=== PATIENT | female | born 1945 | race Caucasian/White ===

== ENCOUNTER → 2016-04-05 | Outpatient (REF) | payer MEDICARE, OTHER | LOC: M LAB REF 09:39 | PROVIDERS: ATTEND Ophthalmology | DX: H02.403 Unspecified ptosis of bilateral eyelids (principal) ==

== ENCOUNTER → 2016-07-04 | Outpatient (CLI) | payer MEDICARE, OTHER ==
[2016-07-04 14:41] LABS: MEAN CORPUSCULAR HEMOGLOBIN 35.6 pg (27.0-33.0); MEAN CORPUSCULAR VOLUME 101.7 fl (80.0-96.0); RED CELL DISTRIBUTION WIDTH 12.6 % (11.5-14.5); WHITE BLOOD COUNT 5.2 K/mm3 (4.0-10.0)
--- NOTE | 2016-07-04 19:10 | ECGEPIP ---
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
== END ==
LOC: M LAB 14:03
PROVIDERS: ATTEND Ophthalmology
DX: E78.00 Pure hypercholesterolemia, unspecified (principal)

== ENCOUNTER → 2016-10-06 | Outpatient (CLI) | payer MEDICARE, OTHER ==
--- NOTE | 2016-10-06 12:23 | REPMRS ---
Patient History The patient states she has not had a clinical breast exam in over a year. Patient is postmenopausal. Family history of breast cancer in sister under age 50, colorectal cancer in mother at age 50 or over, and pancreatic cancer in paternal grandmother. Digital Woman Screen Mammo: October 06, 2016 - Exam #: [id number] Bilateral CC and MLO view(s) were taken. Technologist: Rubi Terrell, Technologist Prior study comparison: September 30, 2015, digital woman screen mammo performed at [facility]. September 25, 2014, digital woman screen mammo performed at [facility] [employer] [facility]. FINDINGS: There are scattered fibroglandular densities. There has been no change in the appearance of the mammogram from the prior studies. There is a mild amount of residual fibroglandular tissue which is fairly symmetric. There is no interval development of dominant mass, architectural distortion, or clustered microcalcification suggestive of malignancy. ASSESSMENT: BI-RADS/ACR category 1 mammogram. Negative. Recommendation Routine screening mammogram in 1 year (for women over age 40). This mammogram was interpreted with the aid of an FDA-approved computer-aided dectection system. Electronically Signed By: Marky Burdick MD 10/06/16 1183
== END ==
LOC: M WHC 10:30
PROVIDERS: ATTEND Family Medicine
DX: Z12.31 Encounter for screening mammogram for malignant neoplasm of breast (principal)

== ENCOUNTER 2017-04-12 06:45 | Day surgery (SDC) | payer MEDICARE, OTHER ==
[2017-04-12] MEDS ORDERED: LIDOCAINE 2% INJ 100 MG/5 ML SDV (FOR ANES.) As Ordered (07:04)
[2017-04-12] MEDS ORDERED: PROPOFOL 200 MG/20 ML VIAL As Ordered ×2 (07:04→07:47)
[2017-04-12] MEDS: NS 500 ML IV (07:14)
== END 2017-04-12 08:32 | disposition home or self-care (01) ==
LOC: M OPP 06:45
DX: Z12.11 Encounter for screening for malignant neoplasm of colon (principal); Z86.010 Personal history of colon polyps; Z80.0 Family history of malignant neoplasm of digestive organs; D12.5 Benign neoplasm of sigmoid colon; K55.20 Angiodysplasia of colon without hemorrhage; K57.30 Diverticulosis of large intestine without perforation or abscess without bleeding; E78.5 Hyperlipidemia, unspecified; Z78.0 Asymptomatic menopausal state; Z80.1 Family history of malignant neoplasm of trachea, bronchus and lung; Z80.8 Family history of malignant neoplasm of other organs or systems; Z80.3 Family history of malignant neoplasm of breast; Z87.891 Personal history of nicotine dependence; Z79.899 Other long term (current) drug therapy
CPT/HCPCS: 45385

== ENCOUNTER → 2017-10-08 | Outpatient (CLI) | payer MEDICARE, OTHER | LOC: M WHC 10:42 | DX: Z12.31 Encounter for screening mammogram for malignant neoplasm of breast (principal); M85.851 Other specified disorders of bone density and structure, right thigh; M85.852 Other specified disorders of bone density and structure, left thigh; M85.88 Other specified disorders of bone density and structure, other site | CPT/HCPCS: 77067 ==

== ENCOUNTER 2018-06-15 18:15 | Emergency (ER) | payer MEDICARE, OTHER ==
[~2018-06-15] VITALS: Ht 167.6 cm; Wt 85.5 kg
[~2018-06-15 18:15] MED LIST: OMEG340C PO; SIMV20TA2; VITA100067 PO; VITA500T PO
[2018-06-15] MEDS ORDERED: NS 1,000 ML IV ONE ×2 (19:15)
[2018-06-15] MEDS ORDERED: METOCLOPRAMIDE INJ 10MG/2ML VIAL (J2765) IV ONE (19:15)
[2018-06-15] MEDS ORDERED: DICYCLOMINE INJ 20MG/2ML (J0500) IM ONE (19:15)
[2018-06-15 19:38] LABS: BASO % 0.3 % (0.0-1.0); EOS # 0.1 10^3/uL (0.0-0.50); EOS % 0.8 % (0.0-3.0); HEMATOCRIT 43.5 % (36.0-47.0); LYMPH # 1.1 10^3/uL (1.5-4.5); LYMPH % 13.5 % (24.0-44.0); MEAN CORPUSCULAR HEMOGLOBIN 34.5 pg (27.0-33.0); MEAN CORPUSCULAR HGB CONC 34.5 g/dl (32.0-36.5); MONO # 0.5 10^3/uL (0.0-0.8); MONO % 5.7 % (0.0-5.0); NEUTROPHILS # 6.2 10^3/uL (1.8-7.7); NEUTROPHILS % 79.4 % (36.0-66.0); PLATELET COUNT, AUTOMATED 174 10^3/uL (150-450); RED BLOOD COUNT 4.35 10^6/uL (4.00-5.40); WHITE BLOOD COUNT 7.9 10^3/uL (4.0-10.0)
[2018-06-15 20:08] LABS: ALBUMIN 3.1 GM/DL (3.2-5.2); ALT/SGPT 199 U/L (12-78); AMYLASE 26 U/L (25-115); BILIRUBIN,TOTAL 1.9 MG/DL (0.2-1.0); BLOOD UREA NITROGEN 19 MG/DL (7-18); C REACTIVE PROTEIN QUANTITATIV 5.38 MG/DL (0.00-0.30); CALCIUM LEVEL 8.1 MG/DL (8.8-10.2); CARBON DIOXIDE LEVEL 25 MEQ/L (21-32); CHLORIDE LEVEL 105 MEQ/L (98-107); CREATININE FOR GFR 0.73 MG/DL (0.55-1.30); GLOMERULAR FILTRATION RATE > 60.0 (>39); GLUCOSE, FASTING 83 MG/DL (70-100); LIPASE 134 U/L (73-393); POTASSIUM SERUM 3.5 MEQ/L (3.5-5.1); SODIUM LEVEL 139 MEQ/L (136-145); TOTAL PROTEIN 6.1 GM/DL (6.4-8.2)
--- NOTE | 2018-06-15 22:06 | REPVR ---
EXAM: US Abdomen Limited, Right Upper Quadrant EXAM DATE/TIME: 06/15/2018 8:21 PM CLINICAL HISTORY: 72 years old, female; Abdominal pain; Epigastric; Additional info: Ruq pain, n/v/d TECHNIQUE: Imaging protocol: Real-time ultrasound of the abdomen with image documentation. Examination was focused on the right upper quadrant. COMPARISON: No relevant prior studies available. FINDINGS: Liver: The liver demonstrates no focal defects. Gallbladder: The gallbladder demonstrates sludge and a 12 mm stone. There is slight gallbladder wall thickening measuring 3-4 mm. There is a negative sono Richter's sign. Common bile duct: The CBD is dilated measuring up to 12 mm. Pancreas: The pancreas is normal. The pancreatic duct measures 2.5 mm. Right kidney: The right kidney is normal and measures 10.4 cm. IMPRESSION: 1. Gallbladder sludge with gallstone and slight gallbladder wall thickening measuring 3-4 mm. There is a negative sono Richter's sign. 2. Dilated CBD measuring 12 mm. 3. Otherwise negative right upper quadrant sonogram. Electronically signed by: Ronen Morataya On 06/15/2018 22:06:14 PM
[2018-06-16] MEDS ORDERED: KETOROLAC 30 MG/ML VIAL (J1885) IV ONE
[2018-06-16] MEDS ORDERED: KETOROLAC 30 MG/ML VIAL (J1885) As Ordered ONE (00:02)
[2018-06-16] MEDS ORDERED: NS 1,000 ML IV SCH (00:15)
[2018-06-16 00:55] VITALS: BP 107/57
--- NOTE | 2018-06-16 09:43 | REP ---
REASON: Pain after trauma. COMPARISON: None. FINDINGS: Five views of the right ribs show no acute fracture or destructive osseous lesion. The accompanying frontal view of the chest shows no cardiomegaly, infiltrates, effusions or pneumothoraces. IMPRESSION: Negative rib series. Electronically Signed by Johan Christensen DO 06/16/2018 01:45 P
--- NOTE | 2018-06-16 20:52 | ECGEPIP ---
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
[2018-06-17 14:29] LABS: HEPATITIS C VIRUS ABY INDEX 0.1 INDEX (<0.8)
[2018-06-17 14:33] LABS: HEPATITIS B CORE ANTIBODY IGM NEGATIVE (NEGATIVE); HEPATITIS B SURFACE ANTIGEN NEGATIVE (NEGATIVE)
[2018-06-17 14:34] LABS: HEPATITIS A ANTIBODY IGM NEGATIVE (NEGATIVE)
== END 2018-06-16 00:55 | disposition short-term general hospital (02) ==
LOC: M ED 18:15
DX: K83.8 Other specified diseases of biliary tract (principal); R11.2 Nausea with vomiting, unspecified; R19.7 Diarrhea, unspecified; R10.11 Right upper quadrant pain; K80.20 Calculus of gallbladder without cholecystitis without obstruction; S29.9XXA Unspecified injury of thorax, initial encounter; W01.198A Fall on same level from slipping, tripping and stumbling with subsequent striking against other object, initial encounter; Y92.9 Unspecified place or not applicable; Y93.9 Activity, unspecified; E78.00 Pure hypercholesterolemia, unspecified; Z79.899 Other long term (current) drug therapy
CPT/HCPCS: 71101; 76705; 80053; 82150; 83690; 85025; 86140; 86705; 86709; 86803; 87340; 93005; 96361; 96372; 96374; 96375; 99284; J0500; J1885; J2765

== ENCOUNTER → 2019-01-06 | Outpatient (CLI) | payer MEDICARE, OTHER ==
--- NOTE | 2019-01-06 16:25 | REPMRS ---
Patient History The patient states she has not had a clinical breast exam in over a year. Patient is postmenopausal. Family history of colorectal cancer at age 50 or over in mother, breast cancer under age 50 in sister, pancreatic cancer in paternal grandmother. No Hormone Replacement Therapy Digital Woman Screen Mammo: January 06, 2019 - Exam #: [id number] Bilateral CC and MLO view(s) were taken. Technologist: Regla Laureano, Technologist Prior study comparison: October 08, 2017, bilateral digital woman screen mammo performed at [facility]. October 06, 2016, digital woman screen mammo performed at [facility]. September 30, 2015, digital woman screen mammo performed at [facility]. FINDINGS: There are scattered fibroglandular densities. There has been no change in the appearance of the mammogram from the prior studies. There is a mild amount of scattered fibroglandular density which is fairly symmetric. There is no interval development of dominant mass, architectural distortion, or grouped microcalcification suggestive of malignancy. 3-D tomosynthesis shows no additional findings. Assessment: BI-RADS/ACR category 1 mammogram. Negative Mammogram. Recommendation Routine screening mammogram of both breasts in 1 year (for women over age 40). This patient's Lifetime Breast Cancer Risk is estimated at 5.8 %. This mammogram was interpreted with the aid of an FDA-approved computer-aided dectection system. Electronically Signed By: Blair Greene MD 01/06/19 [id number]
== END ==
LOC: M WHC 13:06
PROVIDERS: ATTEND Family Medicine
DX: Z12.31 Encounter for screening mammogram for malignant neoplasm of breast (principal); Z80.3 Family history of malignant neoplasm of breast; Z78.0 Asymptomatic menopausal state

== ENCOUNTER → 2020-01-08 | Outpatient (CLI) | payer MEDICARE, OTHER ==
[~2020-01-08] MED LIST changes: -SIMV20TA2; +SIMV20TA22; +VITA-243 PO; -VITA500T PO
--- NOTE | 2020-01-08 13:38 | REPMRS ---
Patient History The patient states she has not had a clinical breast exam in over a year. Family history of colorectal cancer at age 50 or over in mother, breast cancer under age 50 in sister, pancreatic cancer in paternal grandmother. No Hormone Replacement Therapy Digital Woman Screen Mammo: January 08, 2020 - Exam #: [id number] Bilateral CC and MLO view(s) were taken. Technologist: RT Kaci Prior study comparison: January 06, 2019, bilateral digital woman screen mammo performed at [facility]. October 08, 2017, bilateral digital woman screen mammo performed at [facility]. October 06, 2016, digital woman screen mammo performed at [facility]. FINDINGS: There are scattered fibroglandular densities. The Volpara volumetric breast density category is:B. There has been no change in the appearance of the mammogram from the prior studies. There is a mild amount of scattered fibroglandular density which is fairly symmetric. There is no interval development of dominant mass, architectural distortion, or grouped microcalcification suggestive of malignancy. 3-D tomosynthesis shows no additional findings. Assessment: BI-RADS/ACR category 1 mammogram. Negative Mammogram. Recommendation Routine screening mammogram of both breasts in 1 year (for women over age 40). This patient's Lifetime Breast Cancer Risk is estimated at 5.3 %. This mammogram was interpreted with the aid of an FDA-approved computer-aided dectection system. Electronically Signed By: Blair Greene MD 01/08/20 9790
== END ==
LOC: M WHC 11:34
PROVIDERS: ATTEND Family Medicine
DX: Z12.31 Encounter for screening mammogram for malignant neoplasm of breast (principal); Z80.0 Family history of malignant neoplasm of digestive organs; Z80.3 Family history of malignant neoplasm of breast

== ENCOUNTER → 2021-03-15 | Outpatient (REF) | payer MEDICARE, OTHER ==
[2021-03-16 11:06] LABS: FOLATE 20.5 NG/ML (>5.4)
== END ==
LOC: M LAB REF 12:17
PROVIDERS: ATTEND Family Medicine
DX: R41.3 Other amnesia (principal)

== ENCOUNTER → 2021-05-06 | Outpatient (CLI) | payer MEDICARE, OTHER | LOC: M WHC 10:58 | PROVIDERS: ATTEND Family Medicine | DX: Z12.31 Encounter for screening mammogram for malignant neoplasm of breast (principal); Z80.3 Family history of malignant neoplasm of breast ==

== ENCOUNTER → 2022-06-19 | Outpatient (REF) | payer MEDICARE, OTHER | LOC: M LAB REF 16:07 | PROVIDERS: ATTEND Nurse Practitioner Adult Health | DX: R31.9 Hematuria, unspecified (principal) ==

== ENCOUNTER → 2022-06-27 | Outpatient (CLI) | payer MEDICARE, OTHER | LOC: M WHC 08:54 | PROVIDERS: ATTEND Nurse Practitioner Adult Health | DX: Z12.31 Encounter for screening mammogram for malignant neoplasm of breast (principal) ==

== ENCOUNTER → 2022-06-29 | Outpatient (CLI) | payer MEDICARE, OTHER | LOC: M WHC 07:19 | PROVIDERS: ATTEND Nurse Practitioner Adult Health | DX: N95.0 Postmenopausal bleeding (principal) ==

== ENCOUNTER → 2022-07-06 | Outpatient (CLI) | payer MEDICARE, OTHER | LOC: M WHC 10:06 | PROVIDERS: ATTEND Nurse Practitioner Adult Health | DX: R92.2 Inconclusive mammogram (principal) | CPT/HCPCS: 77065; G0279 ==

== ENCOUNTER → 2022-07-26 | Outpatient (REF) | payer MEDICARE, OTHER | LOC: M SFHCWAGY 17:53 | PROVIDERS: ATTEND Nurse Practitioner Family | DX: N85.8 Other specified noninflammatory disorders of uterus (principal) ==

== ENCOUNTER → 2023-08-24 | Outpatient (CLI) | payer MEDICARE, OTHER ==
[~2023-08-24] MED LIST changes: +D-3-50003 PO; +MV-M1TAB13 PO; +SERT25TA21 PO; -SIMV20TA22; +SIMV20TA22 PO; +VITA250T27 PO
== END ==
LOC: M WHC 12:09
PROVIDERS: ATTEND Family Medicine
DX: Z12.31 Encounter for screening mammogram for malignant neoplasm of breast (principal)

== ENCOUNTER 2024-10-05 19:17 | Inpatient (IN) | payer MEDICARE, OTHER ==
[~2024-10-05] VITALS: Ht 167.6 cm; Wt 65.5 kg
[2024-10-05] MEDS: MORPHINE 4 MG/ML 1 ML VIAL IV ONE (19:51)
[2024-10-05] MEDS: ONDANSETRON 4MG 2ML VIAL IV ONE (19:51)
[2024-10-05 20:10] LABS: BASO # 0.0 10^3/uL (0.0-0.2); BASO % 0.4 % (0.0-1.0); EOS # 0.1 10^3/uL (0.0-0.5); EOS % 1.5 % (0.0-3.0); LYMPH # 1.9 10^3/uL (1.5-5.0); LYMPH % 26.1 % (24.0-44.0); MONO # 0.6 10^3/uL (0.0-0.8); MONO % 7.7 % (2.0-8.0); NEUTROPHILS # 4.6 10^3/uL (1.5-8.5); NEUTROPHILS % 63.9 % (36.0-66.0); PLATELET COUNT, AUTOMATED 157 10^3/uL (150-450)
[2024-10-05 20:29] LABS: CALCIUM LEVEL 8.5 MG/DL (8.3-10.6); CARBON DIOXIDE LEVEL 26.0 MMOL/L (20-31); CHLORIDE LEVEL 106.0 MMOL/L (98-107); CREATININE FOR GFR 0.68 MG/DL (0.55-1.30); GLOMERULAR FILTRATION RATE 87.4 (>32); MAGNESIUM LEVEL 1.8 MG/DL (1.8-2.4); POTASSIUM SERUM 4.2 MMOL/L (3.5-5.1); SODIUM LEVEL 142.0 MMOL/L (136-145)
[2024-10-05] MEDS: ACETAMINOPHEN 500 MG TAB PO SCH (22:00)
[2024-10-05] MEDS ORDERED: KETOROLAC 30 MG/ML 1 ML VIAL IV PRN (22:50)
[2024-10-05] MEDS ORDERED: HOME MED LIST COMPLETE! XX SCH (23:35)
[2024-10-06] MEDS: SIMVASTATIN 20 MG TAB PO SCH (00:42)
[2024-10-06] MEDS: MORPHINE 4 MG/ML 1 ML VIAL IV PRN (00:53)
[2024-10-06] MEDS ORDERED: **hydrALAZINE** 10 MG TAB PO PRN (01:25)
[2024-10-06] MEDS ORDERED: IPRATROPIUM 0.5 MG/ALBUTEROL 2.5 MG INH SOL UD 3 ML NEB PRN ×2 (01:35→10:25)
[2024-10-06 07:11] LABS: PLATELET COUNT, AUTOMATED 159 10^3/uL (150-450)
[2024-10-06 08:03] LABS: CALCIUM LEVEL 8.5 MG/DL (8.3-10.6); CARBON DIOXIDE LEVEL 28.0 MMOL/L (20-31); CHLORIDE LEVEL 103.0 MMOL/L (98-107); CREATININE FOR GFR 0.63 MG/DL (0.55-1.30); GLOMERULAR FILTRATION RATE 89.1 (>32); IRON (FE) 88.0 UG/DL (50-170); PERCENT SATURATION 41.3 % (13.2-45.0); POTASSIUM SERUM 4.5 MMOL/L (3.5-5.1); SODIUM LEVEL 141.0 MMOL/L (136-145)
[2024-10-06 08:04] LABS: ALT/SGPT 23.0 U/L (7.0-40); AST/SGOT 32.0 U/L (<34); VITAMIN B12 LEVEL 553.0 PG/ML (211-911)
[2024-10-06] MEDS: SERTRALINE HCL 50 MG TAB PO SCH (09:00)
[2024-10-06] MEDS: MORPHINE 2 MG/ML 1 ML VIAL IV PRN (09:34)
[2024-10-06] MEDS ORDERED: MORPHINE 2 MG/ML 1 ML VIAL IV PRN (09:40)
[2024-10-06] MEDS ORDERED: NALOXONE INJ 0.4 MG/1 ML VIAL IV PRN (09:40)
[2024-10-06] MEDS: D5W/0.45% SODIUM CHLORIDE 1,000 ML IV SCH (10:59)
[2024-10-06] MEDS: NICOTINE 7 MG/24 HR TRANSDERMAL TD SCH (11:07)
[2024-10-06 12:30] VITALS: BP 147/75; TEMP 97.9; O2SAT 97
[2024-10-06] MEDS: ceFAZolin SODIUM 2 GM in DEXTROSE 5% (D5W) ADV/MINI-BAG 50 ML IV ONE (14:45)
[2024-10-06] MEDS: MORPHINE 2 MG/ML 1 ML VIAL IV ONE (14:45)
[2024-10-06 16:00] VITALS: BP 138/69; TEMP 97.9; O2SAT 98
[2024-10-06 21:39] VITALS: BP 147/74; TEMP 97.5; O2SAT 96
[2024-10-07] VITALS (10 sets, daily range): BP systolic 94–172; BP diastolic 61–86; TEMP 96.8–97.9; O2SAT 91–97
[2024-10-07] MEDS: SERTRALINE HCL 25 MG TABLET PO SCH (06:30)
[2024-10-07 08:16] LABS: PLATELET COUNT, AUTOMATED 134 10^3/uL (150-450)
[2024-10-07 09:14] LABS: CALCIUM LEVEL 8.2 MG/DL (8.3-10.6); CARBON DIOXIDE LEVEL 24 MMOL/L (20-31); CHLORIDE LEVEL 105 MMOL/L (98-107); CREATININE FOR GFR 0.46 MG/DL (0.55-1.30); GLOMERULAR FILTRATION RATE > 90.0 (>32); POTASSIUM SERUM 4.1 MMOL/L (3.5-5.1); SODIUM LEVEL 140 MMOL/L (136-145)
[2024-10-07] MEDS: ceFAZolin SODIUM 2 GM in DEXTROSE 5% (D5W) ADV/MINI-BAG 50 ML IV ONE (09:14)
[2024-10-07] MEDS ORDERED: TRANEXAMIC ACID 100 MG/ML 10ML VIAL As Ordered ONE (10:48)
[2024-10-07] MEDS ORDERED: LIDOCAINE 2% 100 MG/5 ML SDV (FOR ANES.) As Ordered ONE (11:11)
[2024-10-07] MEDS ORDERED: ONDANSETRON 4MG 2ML VIAL As Ordered ONE (11:12)
[2024-10-07] MEDS ORDERED: dexAMETHasone 4 MG/ML 1 ML VIAL As Ordered ONE (11:12)
[2024-10-07] MEDS: ROPIvacaine 0.5% 30ML VIAL PN ONE (11:15)
[2024-10-07] MEDS: LIDOCAINE W/EPINEPHrine 1% 20 ML VIAL As Ordered ONE (13:00)
[2024-10-07] MEDS ORDERED: PHENYLephrine 500MCG 5ML (100MCG/ML) SYRINGE As Ordered ONE (13:02)
[2024-10-07] MEDS ORDERED: KETOROLAC 30 MG/ML 1 ML VIAL As Ordered ONE (13:42)
[2024-10-07] MEDS ORDERED: ONDANSETRON 4MG 2ML VIAL IV PRN (14:00)
[2024-10-07] MEDS ORDERED: HYDROMORPHONE HCL 0.5 MG/0.5 ML SYRINGE IV PRN (14:00)
[2024-10-07] MEDS: LR 1,000 ML IV SCH (15:28)
[2024-10-07] MEDS: ceFAZolin SODIUM 2 GM in DEXTROSE 5% (D5W) ADV/MINI-BAG 50 ML IV SCH (17:03)
[2024-10-07] MEDS: ASPIRIN 81 MG ENTERIC TABLET PO SCH (21:47)
[2024-10-07] MEDS: MIRALAX *UNIT DOSE* 17 GM PACKET PO SCH (21:47)
[2024-10-08 06:35] VITALS: BP 167/87; TEMP 98.1; O2SAT 92
[2024-10-08 07:05] LABS: PLATELET COUNT, AUTOMATED 109 10^3/uL (150-450)
[2024-10-08 07:42] LABS: CALCIUM LEVEL 7.7 MG/DL (8.3-10.6); CARBON DIOXIDE LEVEL 27 MMOL/L (20-31); CHLORIDE LEVEL 106 MMOL/L (98-107); CREATININE FOR GFR 0.48 MG/DL (0.55-1.30); GLOMERULAR FILTRATION RATE > 90.0 (>32); POTASSIUM SERUM 3.9 MMOL/L (3.5-5.1); SODIUM LEVEL 139 MMOL/L (136-145)
[2024-10-08 10:00] VITALS: BP 141/75; TEMP 98.1; O2SAT 94
[2024-10-08] MEDS ORDERED: SENNA 8.6 MG TAB PO PRN (12:25)
[2024-10-08 14:00] VITALS: BP 131/66; TEMP 98.4; O2SAT 95
[2024-10-08] MEDS ORDERED: SERTRALINE HCL 25 MG TABLET PO SCH (21:00)
== END 2024-10-08 16:30 | DRG 481 ==
LOC: M ED 19:17 → M ED INP 22:42 → M MS5PR 10-06 12:30
PROVIDERS: ADMIT Student in an Organized Health Care Education/Training Program; ATTEND Student in an Organized Health Care Education/Training Program
PROC: 0QS606Z Reposition Right Upper Femur with Intramedullary Internal Fixation Device, Open Approach (ICD-10-PCS; principal; 2024-10-07 10:15)
DX: S72.141A Displaced intertrochanteric fracture of right femur, initial encounter for closed fracture (principal); S42.211A Unspecified displaced fracture of surgical neck of right humerus, initial encounter for closed fracture; E78.5 Hyperlipidemia, unspecified; F17.210 Nicotine dependence, cigarettes, uncomplicated; I10 Essential (primary) hypertension; R09.02 Hypoxemia; F39 Unspecified mood [affective] disorder; Z66 Do not resuscitate; Z79.899 Other long term (current) drug therapy; Z90.49 Acquired absence of other specified parts of digestive tract; W10.8XXA Fall (on) (from) other stairs and steps, initial encounter; Y92.018 Other place in single-family (private) house as the place of occurrence of the external cause; Y93.89 Activity, other specified; Y99.8 Other external cause status

== ENCOUNTER 2024-10-08 14:22 | Inpatient (IN) | payer MEDICARE, OTHER ==
[~2024-10-08] VITALS: Ht 167.6 cm; Wt 65.3 kg
[2024-10-08] MEDS ORDERED: MOM 30 ML SUSPENSION UDC PO PRN (15:00)
[2024-10-08] MEDS ORDERED: BISACODYL 10 MG SUPP PR PRN (15:00)
[2024-10-08] MEDS ORDERED: BISACODYL 5 MG TAB PO PRN (15:00)
[2024-10-08] MEDS ORDERED: SIMETHICONE 80MG CHEW TAB PO PRN (15:00)
[2024-10-08] MEDS ORDERED: MAALOX 30 ML SUSP *UDC PO PRN (15:00)
[2024-10-08] MEDS ORDERED: IPRATROPIUM 0.5 MG/ALBUTEROL 2.5 MG INH SOL UD 3 ML NEB PRN (15:10)
[2024-10-08 16:36] VITALS: BP 124/59; TEMP 96.4; O2SAT 93
[2024-10-08 20:00] VITALS: BP 111/59; TEMP 98.3; O2SAT 93
[2024-10-08] MEDS: ASPIRIN 81 MG ENTERIC TABLET PO SCH (21:03)
[2024-10-08] MEDS: SENNA 8.6 MG TAB PO SCH (21:03)
[2024-10-08] MEDS: traMADol 50 MG TAB PO PRN (21:04)
[2024-10-08] MEDS: SIMVASTATIN 20 MG TAB PO SCH (21:04)
[2024-10-08] MEDS: ACETAMINOPHEN 500 MG TAB PO SCH (21:04)
[2024-10-08] MEDS: DOCUSATE SODIUM 100 MG CAPSULE PO SCH (21:04)
[2024-10-09 05:08] VITALS: BP 143/67; TEMP 98.1; O2SAT 92
[2024-10-09 07:15] LABS: BASO # 0.1 10^3/uL (0.0-0.2); BASO % 0.6 % (0.0-1.0); EOS # 0.3 10^3/uL (0.0-0.5); EOS % 3.5 % (0.0-3.0); LYMPH # 2.3 10^3/uL (1.5-5.0); LYMPH % 26.7 % (24.0-44.0); MONO # 0.9 10^3/uL (0.0-0.8); MONO % 10.1 % (2.0-8.0); NEUTROPHILS # 5.1 10^3/uL (1.5-8.5); NEUTROPHILS % 58.8 % (36.0-66.0); PLATELET COUNT, AUTOMATED 148 10^3/uL (150-450)
[2024-10-09] MEDS: SERTRALINE HCL 25 MG TABLET PO SCH (07:31)
[2024-10-09] MEDS: MIRALAX *UNIT DOSE* 17 GM PACKET PO SCH (07:31)
[2024-10-09] MEDS: MULTIVITAMINS/MINERALS THERAP 1 TAB PO SCH (07:31)
[2024-10-09] MEDS: NICOTINE 7 MG/24 HR TRANSDERMAL TD SCH (07:31)
[2024-10-09 07:57] LABS: ALT/SGPT 14 U/L (7.0-40); AST/SGOT 28 U/L (<34); CALCIUM LEVEL 7.9 MG/DL (8.3-10.6); CARBON DIOXIDE LEVEL 29 MMOL/L (20-31); CHLORIDE LEVEL 105 MMOL/L (98-107); CREATININE FOR GFR 0.55 MG/DL (0.55-1.30); GLOMERULAR FILTRATION RATE > 90.0 (>32); POTASSIUM SERUM 3.9 MMOL/L (3.5-5.1); SODIUM LEVEL 141 MMOL/L (136-145)
[2024-10-09 12:00] VITALS: BP 130/61; TEMP 97.8; O2SAT 90
[2024-10-09] MEDS: BISACODYL 5 MG TAB PO ONE (13:31)
[2024-10-09] MEDS: FLEET ENEMA PR ONE (16:53)
[2024-10-09 20:01] VITALS: BP 151/70; TEMP 98.5; O2SAT 97
[2024-10-10 06:00] VITALS: BP 151/67; TEMP 98.3; O2SAT 93
[2024-10-10] MEDS: FERROUS GLUCONATE 324 MG TAB PO SCH (07:36)
[2024-10-10 11:42] VITALS: BP 142/65; TEMP 97.9; O2SAT 96
[2024-10-10 20:00] VITALS: BP 131/59; TEMP 98.7; O2SAT 96
[2024-10-11 04:00] VITALS: BP 138/60; TEMP 97.1; O2SAT 93
[2024-10-11] MEDS: traMADol 50 MG TAB PO PRN (09:03)
[2024-10-11 12:00] VITALS: BP 134/63; TEMP 98.1; O2SAT 95
[2024-10-11 20:00] VITALS: BP 163/71; TEMP 97; O2SAT 93
[2024-10-12 04:00] VITALS: BP 164/78; TEMP 97; O2SAT 97
[2024-10-12] MEDS: SYSTANE ULTRA EYE OU SCH (09:00)
[2024-10-12 11:54] VITALS: BP 133/60; TEMP 98.1; O2SAT 96
[2024-10-12 19:52] VITALS: BP 156/70; TEMP 98.6; O2SAT 99
[2024-10-13 03:10] VITALS: BP 160/75; TEMP 98.6; O2SAT 97
[2024-10-13 12:00] VITALS: BP 157/67; TEMP 98.3; O2SAT 98
[2024-10-13 19:36] VITALS: BP 162/70; TEMP 98.6; O2SAT 99
[2024-10-13 20:23] VITALS: BP 162/70
[2024-10-13] MEDS: **hydrALAZINE HCL** 25 MG TAB PO PRN (20:23)
[2024-10-14 05:27] VITALS: BP_SYST 152; BP_SYST 172; BP_DIAS 70; BP_DIAS 78; TEMP 98.8; O2SAT 92
[2024-10-14 11:08] LABS: BASO # 0.1 10^3/uL (0.0-0.2); BASO % 0.7 % (0.0-1.0); EOS # 0.1 10^3/uL (0.0-0.5); EOS % 1.0 % (0.0-3.0); LYMPH # 1.4 10^3/uL (1.5-5.0); LYMPH % 17.5 % (24.0-44.0); MONO # 0.8 10^3/uL (0.0-0.8); MONO % 9.9 % (2.0-8.0); NEUTROPHILS # 5.8 10^3/uL (1.5-8.5); NEUTROPHILS % 70.5 % (36.0-66.0); PLATELET COUNT, AUTOMATED 340 10^3/uL (150-450)
[2024-10-14 11:31] LABS: CALCIUM LEVEL 8.3 MG/DL (8.3-10.6); CARBON DIOXIDE LEVEL 24 MMOL/L (20-31); CHLORIDE LEVEL 103 MMOL/L (98-107); CREATININE FOR GFR 0.60 MG/DL (0.55-1.30); GLOMERULAR FILTRATION RATE > 90.0 (>32); POTASSIUM SERUM 4.1 MMOL/L (3.5-5.1); SODIUM LEVEL 141 MMOL/L (136-145)
[2024-10-14 12:00] VITALS: BP 146/65; TEMP 98.6; O2SAT 97
[2024-10-14 15:11] LABS: KETONE, URINE AUTO RFX TRACE mg/dL (NEGATIVE); MUCUS, URINE RFX SMALL (NEGATIVE); NITRITE, URINE AUTO RFX NEGATIVE (NEGATIVE); RBC, URINE AUTO RFX 2 /HPF (0-3); SQUAM EPITHELIAL CELL UR AURFX 2 /HPF (0-6); WBC, URINE AUTO RFX 6 /HPF (0-3)
[2024-10-14 15:16] LABS: LEUKOCYTE ESTERASE UR AUTO RFX TRACE (NEGATIVE)
[2024-10-14 19:45] VITALS: BP 165/75; TEMP 98.7; O2SAT 95
[2024-10-14 21:00] VITALS: BP 124/72
[2024-10-15 04:00] VITALS: BP 147/67; TEMP 98.5; O2SAT 95
[2024-10-15 07:25] VITALS: BP 167/72; TEMP 98.1; O2SAT 95
[2024-10-15] MEDS: ONDANSETRON 4MG ORAL DISINTEGRATING TAB PO PRN (08:02)
[2024-10-15 12:08] VITALS: BP 115/56; TEMP 99.4; O2SAT 95
[2024-10-15 20:00] VITALS: BP 159/71; TEMP 98.5; O2SAT 96
[2024-10-15] MEDS: QUEtiapine FUMARATE 50MG TAB PO PRN (21:42)
[2024-10-16 04:00] VITALS: BP 110/53; TEMP 98; O2SAT 96
[2024-10-16 11:46] VITALS: BP 111/54; TEMP 99.5; O2SAT 96
[2024-10-16 20:00] VITALS: BP 138/63; TEMP 99.2; O2SAT 96
[2024-10-16] MEDS: traZODone 25MG PER 1/2 TABLET PO PRN (21:02)
[2024-10-17] MEDS: ACETAMINOPHEN 500 MG TAB PO PRN (00:45)
[2024-10-17] MEDS: RAMELTEON 8 MG TAB PO PRN (00:45)
[2024-10-17 04:00] VITALS: BP 134/64; TEMP 98; O2SAT 95
[2024-10-17] MEDS ORDERED: ASPI81TAEC PO (11:42)
[2024-10-17] MEDS ORDERED: ACET-683 PO (11:42)
[2024-10-17] MEDS ORDERED: SENN18TA PO (11:42)
[2024-10-17] MEDS ORDERED: RAME8TAB2 PO (11:42)
[2024-10-17] MEDS ORDERED: COLA100C5 PO (11:42)
[2024-10-17] MEDS ORDERED: FERR32TA PO (11:42)
[2024-10-17 12:10] VITALS: BP 137/61; TEMP 98.6; O2SAT 98
[2024-10-17 20:00] VITALS: BP 171/72; TEMP 97.8; O2SAT 94
[2024-10-17 21:00] VITALS: BP 137/78
[2024-10-18 04:00] VITALS: BP 136/65; TEMP 98.7; O2SAT 94
[2024-10-18 12:11] VITALS: BP 133/61; TEMP 98.7; O2SAT 95
[2024-10-18 20:00] VITALS: BP 141/68; TEMP 97.5; O2SAT 96
[2024-10-19 04:00] VITALS: BP 151/69; TEMP 98.5; O2SAT 94
[2024-10-19 12:00] VITALS: BP 131/62; TEMP 98.5; O2SAT 93
[2024-10-19 20:00] VITALS: BP 154/72; TEMP 97; O2SAT 93
[2024-10-20 04:00] VITALS: BP 152/69; TEMP 97.9; O2SAT 95
== END 2024-10-20 11:30 | disposition home health service (06) | DRG 559 ==
LOC: M PM&R 16:20
PROVIDERS: ADMIT Physical Medicine & Rehabilitation; ATTEND Physical Medicine & Rehabilitation
DX: S72.141D Displaced intertrochanteric fracture of right femur, subsequent encounter for closed fracture with routine healing (principal); J96.01 Acute respiratory failure with hypoxia; D62 Acute posthemorrhagic anemia; R44.3 Hallucinations, unspecified; F32.A Depression, unspecified; E78.5 Hyperlipidemia, unspecified; I10 Essential (primary) hypertension; F17.210 Nicotine dependence, cigarettes, uncomplicated; S42.211D Unspecified displaced fracture of surgical neck of right humerus, subsequent encounter for fracture with routine healing; K59.00 Constipation, unspecified; R01.1 Cardiac murmur, unspecified; R41.0 Disorientation, unspecified; G47.00 Insomnia, unspecified; T40.2X5A Adverse effect of other opioids, initial encounter; Z66 Do not resuscitate; Z74.09 Other reduced mobility; Z74.1 Need for assistance with personal care; Z98.41 Cataract extraction status, right eye; Z79.899 Other long term (current) drug therapy

== ENCOUNTER → 2024-11-03 | Outpatient (CLI) | payer MEDICARE, OTHER ==
[~2024-11-03] MED LIST changes: +ACET-683 PO; +ASPI81TAEC PO; +COLA100C5 PO; +FERR32TA PO; +RAME8TAB2 PO; +SENN18TA PO
== END ==
LOC: M SOG 07:54
PROVIDERS: ATTEND Orthopaedic Surgery
DX: Z47.89 Encounter for other orthopedic aftercare (principal); M25.511 Pain in right shoulder

== ENCOUNTER → 2024-12-15 | Outpatient (CLI) | payer MEDICARE, OTHER | LOC: M SOG 07:28 | PROVIDERS: ATTEND Orthopaedic Surgery | DX: S42.201D Unspecified fracture of upper end of right humerus, subsequent encounter for fracture with routine healing (principal); S72.141D Displaced intertrochanteric fracture of right femur, subsequent encounter for closed fracture with routine healing ==